=== PATIENT | male | born 1945 | race Caucasian/White ===

== ENCOUNTER 2017-05-26 07:38 | Emergency (ER) | payer OTHER ==
[~2017-05-26] VITALS: Ht 162.6 cm; Wt 60.8 kg
[~2017-05-26 07:38] MED LIST: ASPIR 8181 MG; DOXYCYCLINE HY100 MG; PLAVIX75 MG
[2017-05-26] MEDS ORDERED: LIPITOR20 MG PO (07:46)
== END 2017-05-26 11:41 | disposition home or self-care (01) ==
LOC: ER 07:38
DX: R00.2 Palpitations (principal); F41.1 Generalized anxiety disorder

== ENCOUNTER 2017-08-09 09:43 | Emergency (ER) | payer OTHER ==
[~2017-08-09] VITALS: Ht 162.6 cm; Wt 61.7 kg
[~2017-08-09 09:43] MED LIST changes: +LIPITOR20 MG PO
== END 2017-08-09 18:13 | disposition home or self-care (01) ==
LOC: ER 09:43
DX: R42 Dizziness and giddiness (principal)

== ENCOUNTER 2018-04-19 13:11 | Outpatient (CLI) | payer OTHER | END 2018-04-19 13:15 | disposition home or self-care (01) | LOC: RAD 13:11 | DX: J44.9 Chronic obstructive pulmonary disease, unspecified (principal); I10 Essential (primary) hypertension ==

== ENCOUNTER 2018-10-01 11:54 | Outpatient (CLI) | payer OTHER | END 2018-10-01 12:02 | disposition home or self-care (01) | LOC: RAD 11:54 | DX: I25.89 Other forms of chronic ischemic heart disease (principal); T82.855A Stenosis of coronary artery stent, initial encounter ==

== ENCOUNTER 2019-09-10 15:07 | Outpatient (CLI) | payer OTHER | END 2019-09-10 15:19 | disposition home or self-care (01) | LOC: RAD 15:07 | DX: M54.5 Low back pain (principal) ==

== ENCOUNTER 2020-07-08 15:36 | Emergency (ER) | payer OTHER ==
[~2020-07-08] VITALS: Ht 162.6 cm; Wt 56.7 kg
[2020-07-08] MEDS ORDERED: CORLANOR5 MG (15:54)
[2020-07-08] MEDS ORDERED: ACID REDUCER20 M1 (15:54)
[2020-07-08] MEDS ORDERED: TAMS0.4C (15:54)
[2020-07-08] MEDS ORDERED: PEPCID AC20 MG (15:54)
[2020-07-08] MEDS ORDERED: INTEGRA PLUS C1 EACH (15:55)
[2020-07-08] MEDS ORDERED: DOLOGEN CAPLET1 EACH PO (17:56)
== END 2020-07-08 18:45 | disposition home or self-care (01) ==
LOC: ER 15:36
DX: M54.5 Low back pain (principal)

== ENCOUNTER 2020-07-21 07:23 | Outpatient (CLI) | payer OTHER ==
[~2020-07-21 07:23] MED LIST changes: +ACID REDUCER20 M1; +CORLANOR5 MG; +DOLOGEN CAPLET1 EACH PO; +INTEGRA PLUS C1 EACH; +PEPCID AC20 MG; +TAMS0.4C
== END 2020-07-21 07:36 | disposition home or self-care (01) ==
LOC: SONOGRAMA 07:23
PROVIDERS: ATTEND General Practice
DX: Z13.89 Encounter for screening for other disorder (principal); Z13.1 Encounter for screening for diabetes mellitus; Z00.01 Encounter for general adult medical examination with abnormal findings; Z12.11 Encounter for screening for malignant neoplasm of colon; Z12.5 Encounter for screening for malignant neoplasm of prostate; Z11.3 Encounter for screening for infections with a predominantly sexual mode of transmission; Z11.4 Encounter for screening for human immunodeficiency virus [HIV]; Z13.220 Encounter for screening for lipoid disorders; Z13.228 Encounter for screening for other metabolic disorders; Z13.0 Encounter for screening for diseases of the blood and blood-forming organs and certain disorders involving the immune mechanism; N40.1 Benign prostatic hyperplasia with lower urinary tract symptoms; Z13.820 Encounter for screening for osteoporosis